=== PATIENT | female | born 2000 | race African-American/Black ===

== ENCOUNTER 2022-01-17 09:21 | Outpatient (CLI) | payer OTHER | END 2022-01-17 09:22 | disposition home or self-care (01) | LOC: CSHULT 09:21 | PROVIDERS: ATTEND Family Medicine | DX: Z34.02 Encounter for supervision of normal first pregnancy, second trimester (principal); Z3A.21 21 weeks gestation of pregnancy | CPT/HCPCS: 76805 ==

== ENCOUNTER 2022-02-09 15:09 | Emergency (ER) | payer OTHER | END 2022-02-09 17:53 | disposition home or self-care (01) | LOC: CSHERS 15:09 | DX: O98.512 Other viral diseases complicating pregnancy, second trimester (principal); U07.1 COVID-19; Z3A.24 24 weeks gestation of pregnancy | CPT/HCPCS: 87081; 87430; 87804; 99283; U0003; U0005 ==

== ENCOUNTER 2022-05-22 20:28 | Day surgery (SDC) | payer OTHER ==
[2022-05-22 21:32] VITALS: BMI 35.2
[2022-05-22 22:04] LABS: Fetal Membranes Rupture No Membranes Rupture (No Rupture)
[2022-05-23] MEDS ORDERED: metroNIDAZOLE 500 MG TAB PO SCH (09:00)
== END 2022-05-23 01:49 | disposition home or self-care (01) ==
LOC: CSHLD/OP 20:28
PROVIDERS: ATTEND Family Medicine
DX: O47.1 False labor at or after 37 completed weeks of gestation (principal); O42.92 Full-term premature rupture of membranes, unspecified as to length of time between rupture and onset of labor; O99.513 Diseases of the respiratory system complicating pregnancy, third trimester; J45.909 Unspecified asthma, uncomplicated; O23.593 Infection of other part of genital tract in pregnancy, third trimester; B96.89 Other specified bacterial agents as the cause of diseases classified elsewhere; Z79.899 Other long term (current) drug therapy; Z3A.38 38 weeks gestation of pregnancy
CPT/HCPCS: 76819; 84112; 87480; 87510; 87660; 99285

== ENCOUNTER 2022-05-31 17:32 | Inpatient (IN) | payer OTHER ==
[~2022-05-31 17:32] MED LIST: Terbutaline Sulfate 1 MG/ML VIAL ONE
[2022-05-31] MEDS ORDERED: hydrALAZINE 20 MG/ML VIAL SLOW IVP PRN (18:11)
[2022-05-31] MEDS ORDERED: Ondansetron PF 4 MG/2 ML Vial IVP PRN (18:11)
[2022-05-31] MEDS ORDERED: Butorphanol Tartrate 1 MG/ML VIAL SLOW IVP PRN (18:11)
[2022-05-31] MEDS ORDERED: Lidocaine 1% (PF) 30 ML VIAL SC PRN (18:11)
[2022-05-31] MEDS ORDERED: Promethazine HCl 25 MG/ML VIAL IM PRN (18:11)
[2022-05-31] MEDS ORDERED: Diphenoxylate HCl/Atropine Tablet PO PRN (18:13)
[2022-05-31] MEDS ORDERED: Misoprostol 200 MCG TAB PR PRN (18:13)
[2022-05-31] MEDS ORDERED: Carboprost 250 MCG/ML AMP IM PRN (18:13)
[2022-05-31] MEDS ORDERED: Ibuprofen 800 MG TAB PO PRN (18:13)
[2022-05-31] MEDS ORDERED: Methylergonovine 0.2 MG/ML VIAL IM PRN (18:13)
[2022-05-31] MEDS ORDERED: NS w/ Oxytocin 30 units 500 ML IV SCH (18:15)
[2022-05-31 18:47] VITALS: BMI 35.2
[2022-05-31] MEDS: Lactated Ringer's 1,000 ML IV SCH (22:45)
[2022-05-31] MEDS: Misoprostol 100 MCG TAB VAG SCH (23:04)
[2022-05-31 23:44] LABS: Hemoglobin 14.4 g/dL (12.0-15.5); Mean Corpuscular HGB CONC 35.8 g/dL (32.0-36.0); Mean Corpuscular Hemoglobin 27.3 pg (27.0-33.0); Mean Corpuscular Volume 76.3 fl (81.6-98.3); Mean Platelet Volume 11.5 fl (7.4-10.4); Platelet Count 422 10x3/uL (150-450); RBC Distribution Width 14.6 % (11.5-14.5); Red Blood Cell (RBC) Count 5.27 10x6/uL (3.90-5.03); White Blood Cell (WBC) Count 8.8 10x3/uL (3.5-10.5)
[2022-06-01] MEDS ORDERED: Penicillin G Potassium 5 MILL.UNITS in Sodium Chloride 0.9% 100 ML IVPB SCH
[2022-06-01 00:45] LABS: HBSAg Index 0.13 S/CO (0-0.99); Hep B Surf Ag Non-Reactive S/CO (NonReactive)
[2022-06-01 00:47] LABS: Syphilis Antibody Nonreactive (Nonreactive); Syphilis Antibody Index 0.04 S/CO (<1.00 Non-Reactive)
[2022-06-01 01:41] LABS: SARS-CoV-2 NAA Rapid Test Not Detected (NotDetected)
[2022-06-01] MEDS: Lactated Ringer's 1,000 ML IV SCH ×2 (02:19→07:27)
[2022-06-01] MEDS: Penicillin G 2.5 MILL.units 2.5 MILL.UNITS in Premix Bag 1 BAG IVPB SCH ×2 (03:28→07:27)
[2022-06-01] MEDS ORDERED: Fentanyl 2 mcg/Bup 0.1% Cadd 100 ML ONE (04:41)
[2022-06-01] MEDS ORDERED: Naloxone HCl 0.4 mg/ml Vial IVP PRN ×4 (05:38→10:13)
[2022-06-01] MEDS ORDERED: Lactated Ringer's 500 ML IV PRN (05:38)
[2022-06-01] MEDS ORDERED: Promethazine HCl 25 MG/ML VIAL IM PRN ×3 (05:38→11:25)
[2022-06-01] MEDS ORDERED: Moisturizing Cream (Eucerin) 113 GM JAR TOP PRN ×2 (05:38→10:13)
[2022-06-01] MEDS ORDERED: diphenhydrAMINE 50 MG/ML VIAL IVP PRN ×2 (05:38→10:13)
[2022-06-01] MEDS ORDERED: Ondansetron PF 4 MG/2 ML Vial IVP PRN ×3 (05:38→11:25)
[2022-06-01] MEDS ORDERED: ePHEDrine Sulfate 50 MG/10 ML VIAL SLOW IVP PRN (05:38)
[2022-06-01] MEDS ORDERED: Fentanyl 2 mcg/Bupivacaine 0.1% Cassette 100 ML EPIDURAL SCH (05:45)
[2022-06-01] MEDS ORDERED: Communication Order-Pharmacy FS SCH ×2 (05:45→10:15)
[2022-06-01] MEDS ORDERED: CEFAZOLIN 2 GM VIAL ONE (06:54)
[2022-06-01] MEDS ORDERED: Sodium Chloride 0.9% 100 ML ONE (06:54)
[2022-06-01] MEDS ORDERED: Famotidine/PF 20 mg/2ml Vial ONE (06:55)
[2022-06-01] MEDS ORDERED: Lidocaine 2% MPF 10 ML AMP (For Epidural Use) ONE (08:55)
[2022-06-01] MEDS ORDERED: Azithromycin 500 MG VIAL ONE (08:55)
[2022-06-01] MEDS ORDERED: Ketorolac Tromethamine 30 MG/ML VIAL ONE (09:30)
[2022-06-01] MEDS ORDERED: Ondansetron PF 4 MG/2 ML Vial ONE (09:30)
[2022-06-01] MEDS ORDERED: Dexamethasone 4 mg/ml Vial ONE (09:30)
[2022-06-01] MEDS ORDERED: Metoclopramide HCl 10 MG/2 ML VIAL ONE (09:30)
[2022-06-01] MEDS ORDERED: Morphine PF 10 MG/10 ML VIAL ONE (09:31)
[2022-06-01] MEDS ORDERED: Meperidine HCl/PF 25 MG/ML VIAL SLOW IVP PRN (10:13)
[2022-06-01] MEDS ORDERED: Promethazine HCl 25 MG SUPP PR PRN (10:13)
[2022-06-01] MEDS ORDERED: Ondansetron HCl/PF 4 MG/2 ML Vial IVP PRN (10:13)
[2022-06-01] MEDS ORDERED: Fentanyl 100 MCG/2 ML VIAL SLOW IVP PRN (10:13)
[2022-06-01] MEDS ORDERED: Naloxone HCl 0.4 mg/ml Vial IV PRN (10:13)
[2022-06-01] MEDS ORDERED: Meperidine HCl/PF 25 MG/ML VIAL ONE (10:57)
[2022-06-01] MEDS ORDERED: Promethazine HCl 25 MG/ML VIAL ONE ×2 (10:57→10:58)
[2022-06-01] MEDS ORDERED: Lanolin Ointment 7 GM TUBE TOP PRN (11:25)
[2022-06-01] MEDS ORDERED: Meperidine HCl/PF 25 MG/ML VIAL IM PRN (11:25)
[2022-06-01] MEDS ORDERED: Boostrix 0.5 ML (Tdap) VIAL (>/=7 yrs of age) IM ONE (11:25)
[2022-06-01] MEDS ORDERED: Bisacodyl 10 MG SUPP PR PRN (11:25)
[2022-06-01] MEDS ORDERED: diphenhydrAMINE 25 MG CAP PO PRN (11:25)
[2022-06-01] MEDS ORDERED: hydrALAZINE 20 MG/ML VIAL SLOW IVP PRN (11:25)
[2022-06-01] MEDS ORDERED: Misoprostol 200 MCG TAB ONE (11:47)
[2022-06-01] MEDS ORDERED: Ketorolac Tromethamine 30 MG/ML VIAL IVP SCH (12:00)
[2022-06-01] MEDS: Misoprostol 100 MCG TAB VAG SCH ×2 (12:06→12:07)
[2022-06-01] MEDS ORDERED: Ketorolac Tromethamine 30 MG/ML VIAL IVP PRN (15:30)
[2022-06-01] MEDS: Ketorolac Tromethamine 30 MG/ML VIAL IVP SCH ×2 (16:45→22:26)
[2022-06-02] MEDS: Docusate 100 MG CAP PO SCH ×3 (03:42→21:33)
[2022-06-02] MEDS: Ferrous Sulfate 325 MG TAB PO SCH ×3 (03:42→22:15)
[2022-06-02] MEDS: Ketorolac Tromethamine 30 MG/ML VIAL IVP SCH (04:21)
[2022-06-02 05:10] LABS: Mean Corpuscular Hemoglobin 26.1 pg (27.0-33.0); Mean Platelet Volume 10.8 fl (7.4-10.4); Platelet Count 354 10x3/uL (150-450); RBC Distribution Width 14.4 % (11.5-14.5); Red Blood Cell (RBC) Count 4.21 10x6/uL (3.90-5.03); White Blood Cell (WBC) Count 15.1 10x3/uL (3.5-10.5)
[2022-06-02] MEDS: oxyCODONE 5 MG TAB PO PRN ×3 (07:46→14:58)
[2022-06-02] MEDS: Prenatal Vitamin 1 TAB PO SCH (09:06)
[2022-06-02] MEDS: Ibuprofen 800 MG TAB PO SCH ×2 (15:00→21:33)
[2022-06-02] MEDS: Simethicone Chewable 80 MG TAB PO PRN (21:33)
[2022-06-03] MEDS: Simethicone Chewable 80 MG TAB PO PRN ×2 (00:41→08:10)
[2022-06-03] MEDS: oxyCODONE 5 MG TAB PO PRN ×3 (00:41→19:34)
[2022-06-03] MEDS: Ibuprofen 800 MG TAB PO SCH ×3 (05:37→21:06)
[2022-06-03] MEDS: Docusate 100 MG CAP PO SCH ×2 (08:10→21:06)
[2022-06-03] MEDS: Prenatal Vitamin 1 TAB PO SCH (08:10)
[2022-06-03] MEDS: Ferrous Sulfate 325 MG TAB PO SCH ×2 (10:07→21:09)
[2022-06-04] MEDS: Ibuprofen 800 MG TAB PO SCH (05:13)
[2022-06-04] MEDS: Docusate 100 MG CAP PO SCH (07:54)
[2022-06-04] MEDS: Prenatal Vitamin 1 TAB PO SCH (07:54)
[2022-06-04] MEDS: oxyCODONE 5 MG TAB PO PRN (07:55)
[2022-06-04 08:35] VITALS: BP 119/71; TEMP 98.6
== END 2022-06-04 14:00 | disposition home or self-care (01) | DRG 788 ==
LOC: CSHLD/OP 17:32 → CSHLD 20:39 → CSHANTE 06-01 11:23
PROVIDERS: ADMIT Family Medicine; ATTEND Family Medicine
PROC: 10D00Z1 Extraction of Products of Conception, Low, Open Approach (ICD-10-PCS; principal; 2022-06-01)
DX: O34.13 Maternal care for benign tumor of corpus uteri, third trimester (principal); O69.81X0 Labor and delivery complicated by cord around neck, without compression, not applicable or unspecified; O76 Abnormality in fetal heart rate and rhythm complicating labor and delivery; Z37.0 Single live birth; Z3A.40 40 weeks gestation of pregnancy; O69.0XX0 Labor and delivery complicated by prolapse of cord, not applicable or unspecified; D25.9 Leiomyoma of uterus, unspecified; Z20.822 Contact with and (suspected) exposure to COVID-19; O77.0 Labor and delivery complicated by meconium in amniotic fluid; Z88.8 Allergy status to other drugs, medicaments and biological substances
CPT/HCPCS: 51702; 85027; 86780; 86850; 86900; 86901; 87340; 99285; J1100; J1885; J2175; J2274; J2405; J2540; J2550; J2590; J2765; J3105; J3490; J7120; S0028; U0002

== ENCOUNTER 2023-06-26 17:30 | Emergency (ER) | payer OTHER, SELFPAY ==
[2023-06-26] MEDS ORDERED: Acetaminophen 500 MG TAB ONE (17:52)
[2023-06-26 19:09] LABS: SARS-CoV-2 NAA Rapid Test Not Detected (NotDetected)
== END 2023-06-26 19:40 | disposition home or self-care (01) ==
LOC: CSHERS 17:30
DX: R50.9 Fever, unspecified (principal); R05.9 Cough, unspecified; B97.4 Respiratory syncytial virus as the cause of diseases classified elsewhere; Z20.822 Contact with and (suspected) exposure to COVID-19
CPT/HCPCS: 99283

== ENCOUNTER 2025-06-30 15:19 | Emergency (ER) | payer SELFPAY ==
[2025-06-30 16:36] LABS: BHCG - Serum Negative (NEGATIVE)
[2025-06-30 16:37] LABS: Pregs Control Background? CLEAR/WHITE (CLR/WHITE); Pregs Control Bar Appear? YES (CONTROL BAR)
[2025-06-30 17:06] LABS: Glucose, Urine (Dipstick) Normal (Negative); Leukocyte 500 (Negative); Protein, Urine (Dipstick) Negative (Neg-Trace); Specific Gravity, Urine 1.015 (1.005-1.030)
[2025-06-30 17:33] LABS: Bacteria/HPF 2+ HPF (None Seen); CAUTI Indications for Culture Pelvic or flank pain; Mucous/LPF 1+ LPF (<2+); RBC/HPF 0-3 HPF (0-3)
[2025-06-30 17:34] LABS: Urine Culture Reflex No No
[2025-07-01 00:43] LABS: GC by PCR, Vaginal Swab Not Detected (NotDetected)
== END 2025-06-30 18:34 | disposition home or self-care (01) ==
LOC: CSHERS 15:19
DX: B37.31 Acute candidiasis of vulva and vagina (principal); Z75.3 Unavailability and inaccessibility of health-care facilities
CPT/HCPCS: 36415; 36416; 81001; 84703; 87086; 87480; 87510; 87591; 87660; 99283